=== PATIENT | male | born 1975 | race Caucasian/White ===

== ENCOUNTER 2018-07-10 08:22 | Day surgery (SDC) | payer OTHER, MEDICAID ==
[2018-07-10] MEDS ORDERED: PROPOFOL 60 ML (09:39)
[2018-07-10] MEDS ORDERED: LIDOCAINE 2% (SDV) 5 ML INJ (09:45)
== END 2018-07-10 10:33 | disposition home or self-care (01) ==
LOC: GIL 08:22
DX: R19.4 Change in bowel habit (principal); K64.8 Other hemorrhoids; K29.60 Other gastritis without bleeding
CPT/HCPCS: 43239; 88305; 88312